=== PATIENT | female | born 1955 | race African-American/Black ===

== ENCOUNTER 2016-09-06 13:04 | Emergency (ER) | payer MEDICAID ==
[~2016-09-06] VITALS: Ht 162.6 cm; Wt 63.0 kg
[~2016-09-06 13:04] MED LIST: AMLO10TA80 PO; BENA40TA66 PO; CYCL5TAB PO; FLUT16SP15 BOTHNSTRLS; HYDR25TA PO; LABE200T28 PO; NAPR-681 PO; PHEN30CA71; TRAZ-129 PO
[2016-09-06] MEDS ORDERED: SODIUM CHLORIDE 0.9% 1,000 ML IV ONE (13:29)
[2016-09-06 13:47] VITALS: BP 147/75
== END 2016-09-06 13:54 | disposition left against medical advice (07) ==
LOC: ER 13:38
DX: R42 Dizziness and giddiness (principal); I10 Essential (primary) hypertension; M19.90 Unspecified osteoarthritis, unspecified site; J45.909 Unspecified asthma, uncomplicated; Z98.890 Other specified postprocedural states; Z92.29 Personal history of other drug therapy
CPT/HCPCS: 99283; J7030

== ENCOUNTER 2017-09-04 15:45 | Emergency (ER) | payer MEDICAID ==
[~2017-09-04] VITALS: Ht 167.6 cm; Wt 82.0 kg
[~2017-09-04 15:45] MED LIST changes: +PHEN-434; -PHEN30CA71
[2017-09-04] MEDS ORDERED: SODIUM CHLORIDE 0.9% 1,000 ML IV ONE (16:58)
[2017-09-04] MEDS ORDERED: KETOROLAC 15MG/ML VIAL IV ONE (17:45)
[2017-09-04 18:35] VITALS: BP 149/73
[2017-09-04 19:02] LABS: BASOPHILS % 0.8 % (0.0-2.0); EOSINOPHILS % 1.1 % (0.0-5.0); HEMATOCRIT. 35.6 % (36.0-48.0); HEMOGLOBIN. 11.8 g/dL (12.0-16.0); LYMPHOCYTES % 34.9 % (20.0-50.0); MEAN CORPUSCULAR HEMOGLOBIN 27.5 pg (28.0-32.0); MEAN PLATELET VOLUME 9.6 fl (7.4-10.4); MONOCYTES % 7.1 % (2.0-8.0); NEUTROPHILS % 56.1 % (40.0-76.0); PLATELET 291 x1000/uL (130-400); RED BLOOD CELL COUNT 4.28 mill/uL (4.2-5.4); RED CELL DISTRIBUTION WIDTH 16.5 % (11.6-14.6)
[2017-09-04 19:03] LABS: CHLORIDE 112 mEq/L (98-107)
[2017-09-04 19:06] LABS: PARTIAL THROMBOPLASTIN TIME 26.9 sec (23.4-31.0); PROTHROMBIN TIME 10.3 sec (9.4-11.6)
== END 2017-09-04 20:34 | disposition left against medical advice (07) ==
LOC: ER 15:54 → CANBEDREQ 20:56
DX: R42 Dizziness and giddiness (principal); R51 Headache; R53.1 Weakness; R94.31 Abnormal electrocardiogram [ECG] [EKG]; I25.2 Old myocardial infarction; I10 Essential (primary) hypertension; R56.9 Unspecified convulsions; Z98.890 Other specified postprocedural states; Z95.820 Peripheral vascular angioplasty status with implants and grafts
CPT/HCPCS: 36415; 71045; 80053; 80185; 84484; 85025; 85610; 85730; 93005; 96361; 96374; 99285; J1885; J7030; Z7610

== ENCOUNTER 2021-11-23 14:14 | Emergency (ER) | payer MEDICAID ==
[~2021-11-23] VITALS: Ht 162.6 cm; Wt 73.0 kg
[~2021-11-23 14:14] MED LIST changes: -LABE200T28 PO; +LABE200T9 PO; -TRAZ-129 PO; +TRAZ-251 PO
[2021-11-23 14:24] VITALS: BP 162/68
[2021-11-23] MEDS ORDERED: IOHEXOL-350 100 ML BOTTLE ONE (16:05)
== END 2021-11-23 15:26 | disposition home or self-care (01) ==
LOC: ER 14:24 → CANBEDREQ 20:23
DX: R47.1 Dysarthria and anarthria (principal); Z86.73 Personal history of transient ischemic attack (TIA), and cerebral infarction without residual deficits; R53.1 Weakness; R56.9 Unspecified convulsions; I10 Essential (primary) hypertension; I25.2 Old myocardial infarction; Z79.899 Other long term (current) drug therapy
CPT/HCPCS: 70450; 99284; Q9967